=== PATIENT | female | born 1960 | race Caucasian/White ===

== ENCOUNTER 2017-03-23 06:45 | Emergency (ER) | payer OTHER ==
[2017-03-23] MEDS ORDERED: ONDANSETRON 4 MG/2 ML VIAL IVP ONE (07:17)
[2017-03-23] MEDS ORDERED: NS 1,000 ML IV ONE (07:17)
--- NOTE | 2017-03-23 07:22 | EDPHY ---
H & P Stated Complaint: vomiting since Wednesday Time Seen by Provider: 03/23/17 07:05 HPI/ROS: CHIEF COMPLAINT: Vomiting HISTORY OF PRESENT ILLNESS: This is a 56-year-old female with a history of rheumatoid arthritis for which she takes methotrexate every Wednesday. She took her dose of methotrexate last Wednesday, 2 days ago, and has had vomiting since. She has had vomiting in the past that she feels is related to her methotrexate, but her current vomiting is more frequent and more persistent than what she has experienced previously. She is decreasing her methotrexate dose and starting Humira. She denies fever. She has had some abdominal cramping but no localized abdominal pain. She denies diarrhea. She has tried her oral Zofran without relief. She has been unable to keep down any food or fluids. REVIEW OF SYSTEMS: A ten point review of systems was performed and is negative with the exception of the items mentioned in the HPI. - Personal History Current Tetanus/Diphtheria Vaccine: Yes Tetanus Vaccine Date: 2007 - Medical/Surgical History Hx Asthma: Yes Hx Chronic Respiratory Disease: No Hx Diabetes: Yes Hx Cardiac Disease: No Hx Renal Disease: No Hx Cirrhosis: No Hx Alcoholism: No Hx HIV/AIDS: No Hx Splenectomy or Spleen Trauma: No Other PMH: kidney stones, diabetes, allergies, RA/OA. ops: hyst, julien, bso, lisa, tonsillectomy, nephrostomy tube, lithotripsy UROSEPSIS/heart cath - Social History Smoking Status: Heavy smoker - Physical Exam Exam: General Appearance: Alert. Vital signs reviewed. Eyes: Pupils equal and round, no conjunctival injection, no discharge. Anicteric. ENT, Mouth: Mucous membranes are moist, no oropharyngeal erythema or edema. Neck: No lymphadenopathy, supple. Respiratory: Lungs are clear to auscultation; no wheezes, rales, or rhonchi. Cardiovascular: Regular rate and rhythm; no murmur, rub, or gallop. Gastrointestinal: Abdomen is soft and nontender, no masses or organomegaly, bowel sounds normal. Skin: Warm and dry, no rashes on exposed skin, normal color. Back: Nontender to palpation over the thoracolumbar spine. No CVAT. Extremities: No lower extremity edema, no calf tenderness or swelling. Neurological: Alert and oriented. Moving all four extremities easily and equally. Psychiatric: Normal affect. Constitutional: Initial Vital Signs Temperature (C) 36.7 C 03/23/17 06:57 Heart Rate 66 03/23/17 06:57 Respiratory Rate 20 03/23/17 06:57 Blood Pressure 133/77 H 03/23/17 06:57 O2 Sat (%) 97 03/23/17 06:57 O2 Delivery Mode Room Air Allergies/Adverse Reactions: moxifloxacin [Moxifloxacin] Allergy (Severe, Verified 03/23/17 07:00) Hives Penicillins Allergy (Severe, Verified 03/23/17 07:00) Respiratory Distress Fnlnmov-Lol-Fox Reductase Inhibitor Allergy (Severe, Verified 03/23/17 07:00) Muscle Cramping/Aching corn Allergy (Verified 03/23/17 07:00) Pork/Porcine Containing Products [pork] Allergy (Verified 03/23/17 07:00) Home Medications: Medication Instructions Recorded Cholestyramine Packet 03/23/17 Citalopram 03/23/17 Folic Acid 03/23/17 Humira 03/23/17 Lisinopril 03/23/17 Metformin HCl 03/23/17 Methotrexate 03/23/17 Ondansetron 03/23/17 Ondansetron Odt [Zofran Odt 4 mg 4 mg PO Q4 PRN #10 tab 03/23/17 (RX)] Oxycodone HCl 03/23/17 Pioglitazone HCl 03/23/17 Prednisone 03/23/17 traZODone 03/23/17 Medical Decision Making ED Course/Re-evaluation: 1 L normal saline IV and 4 mg IV Zofran ordered. She was re-evaluated at 9:05 a.m.. She is feeling significantly better and has had no vomiting. She was able to tolerate p. o. but developed some further nausea, for which she was given another dose of Zofran. She feels well enough to return home and will be discharged home with Zofran 0DT. Differential Diagnosis: I considered a differential diagnosis that includes but is not limited to gastritis, pancreatitis, medication side effect, and appendicitis. Her gallbladder has been removed. She does not have a tender or surgical abdomen. I am not concerned about the possibility of intra-abdominal infection at this point. - Data Points Medications Given: Discontinued Medications Sodium Chloride (Ns) 1,000 mls @ 0 mls/hr IV ONCE ONE; Wide Open PRN Reason: Protocol Stop: 03/23/17 07:18 Last Admin: 03/23/17 07:40 Dose: 1,000 mls Ondansetron HCl (Zofran) 4 mg IVP EDNOW ONE Stop: 03/23/17 07:18 Last Admin: 03/23/17 07:40 Dose: 4 mg Ondansetron HCl (Zofran Odt) 4 mg PO EDNOW ONE Stop: 03/23/17 10:05 Last Admin: 03/23/17 10:05 Dose: 4 mg Departure - Departure Disposition: Home, Routine, Self-Care Clinical Impression: Vomiting alone Qualifiers: Vomiting type: unspecified Vomiting Intractability: non-intractable Qualified Code(s): R11.11 - Vomiting without nausea Condition: Good Instructions: Acute Nausea and Vomiting (ED) Additional Instructions: Use the Zofran under your tongue every four hours if needed for nausea and vomiting. [place] diet today. Follow up with your concrete spreader and/or your primary care physician as needed. Referrals: Rosalba Gold MD [Primary Care Provider] - As per Instructions Stand Alone Forms: Work Excuse Prescriptions: Ondansetron Odt [Zofran Odt 4 mg (RX)] 4 mg PO Q4 PRN #10 tab PRN Reason: nausea
[2017-03-23] MEDS ORDERED: ONDANSETRON DISINTEGRATING 4 MG TAB ONE (10:02)
[2017-03-23] MEDS ORDERED: ONDANSETRON DISINTEGRATING 4 MG TAB PO ONE (10:04)
[2017-03-23 10:27] VITALS: BP 104/73; PULSE 66; RESP 16; TEMP 98.4; O2SAT 96
== END 2017-03-23 10:30 | disposition home or self-care (01) ==
LOC: CED 06:45
DX: R11.11 Vomiting without nausea (principal); E86.9 Volume depletion, unspecified; J45.909 Unspecified asthma, uncomplicated; E11.9 Type 2 diabetes mellitus without complications; F17.200 Nicotine dependence, unspecified, uncomplicated; Z79.84 Long term (current) use of oral hypoglycemic drugs
CPT/HCPCS: 96374; J2405

== ENCOUNTER 2017-03-24 03:07 | Emergency (ER) | payer OTHER ==
[2017-03-24] MEDS ORDERED: NS 1,000 ML IV ONE (03:22)
[2017-03-24] MEDS ORDERED: ONDANSETRON 4 MG/2 ML VIAL IVP ONE ×2 (03:23→04:08)
[2017-03-24 03:27] LABS: % IMMATURE GRANULYOCYTES 0.6 % (0.0-1.1); ABSOLUTE IMMATURE GRANULOCYTES 0.07 10^3/uL (0.00-0.10); ADD DIFF? NO; ADD MORPH? NO; ADD SCAN? NO; ATYPICAL LYMPHOCYTE FLAG 0 (0-99); FRAGMENT RBC FLAG 0 (0-99); HEMATOCRIT 33.1 % (38.0-47.0); HEMOGLOBIN 11.3 g/dL (12.6-16.3); LEFT SHIFT FLG 0 (0-99); LIPEMIA HEMOLYSIS FLAG 90 (0-99); MEAN CELL HEMOGLOBIN 30.4 pg (27.9-34.1); MEAN CELL HEMOGLOBIN CONCENTR. 34.1 g/dL (32.4-36.7); MEAN PLATELET VOLUME 10.4 fL (8.7-11.7); PLATELET CLUMPS FLAG 20 (0-99); PLATELET COUNT 337 10^3/uL (150-400); RED BLOOD CELL COUNT 3.72 10^6/uL (4.18-5.33); RED CELL DISTRIBUTION WIDTH 15.8 % (11.5-15.2)
[2017-03-24 03:37] LABS: COLOR YELLOW; LEUKOCYTE ESTERASE,URINE 1+ (NEGATIVE); NITRITE,URINE POSITIVE (NEGATIVE); PH,URINE 5.5 (5.0-7.5)
[2017-03-24 03:42] LABS: ALBUMIN 3.6 g/dL (3.5-5.0); BILIRUBIN,TOTAL 0.5 mg/dL (0.1-1.4); BILIRUBIN-CONJUGATED 0.3 mg/dL (0.0-0.5); BILIRUBIN-UNCONJUGATED 0.2 mg/dL (0.0-1.1); CALCIUM 9.3 mg/dL (8.5-10.4); CREATININE 1.1 mg/dL (0.6-1.0); POTASSIUM 4.3 mEq/L (3.5-5.2); TOTAL PROTEIN 6.1 g/dL (6.3-8.2)
[2017-03-24 03:50] LABS: BACTERIA 4+ /hpf (NONE SEEN); WBC,URINE 50-182 /hpf (0-3)
--- NOTE | 2017-03-24 04:03 | EDPHY ---
H & P Stated Complaint: N/V Time Seen by Provider: 03/24/17 03:40 HPI/ROS: This patient reports a 3 day history of vomiting. She explains that her nausea vomiting started on Wednesday morning and she notes gradual increased frequency of the vomiting. She was seen here yesterday on WednesdayMarch 23 and respond well to Zofran with resolution of her nausea and vomiting. However the vomiting recurred within hours when she returned home and she is also unable tolerate the supple nitroglycerin due to frequent emesis. She reports some epigastric pain that started yesterday apparently after her visit here describes a pressure sensation peak intensity 7/10. It does not radiate. She notes no exacerbating factors for that discomfort. She has never had this epigastric pain before. ROS: She reports no fevers. She does have a feeling of cold intolerance for that she reports she has had for quite some time often wearing blankets even during the day. HEENT: No URI symptoms. No sore throat. Pulmonary: No regular coughing no pleuritic pain or shortness of breath. Cardiac: No chest pain. No heart palpitations or lightheadedness. No lower extremity swelling. Hematologic: Patient reports easy bruising recently which is not typical for her. GI: No lower belly pain except for just before she vomits she gets some cramping. : No urinary symptoms Integumentary: No skin rash Complete ROS is otherwise negative. Source: Patient Exam Limitations: No limitations - Personal History Tetanus Vaccine Date: 2007 - Medical/Surgical History PMH: The patient reports a history of an OH but within normal follow-up cardiac catheterization 2 years ago or so. Urosepsis Rheumatoid arthritis Diabetes Past surgical history of cholecystectomy & TAHBSO Hx Asthma: Yes Hx Chronic Respiratory Disease: No Hx Diabetes: Yes Hx Cardiac Disease: No Hx Renal Disease: No Hx Cirrhosis: No Hx Alcoholism: No Hx HIV/AIDS: No Hx Splenectomy or Spleen Trauma: No Other PMH: kidney stones, diabetes, allergies, RA/OA. ops: hyst, julien, bso, lisa, tonsillectomy, nephrostomy tube, lithotripsy UROSEPSIS/heart cath - Family History Significant Family History: No pertinent family hx - Social History Smoking Status: Heavy smoker Alcohol Use: None Drug Use: None - Physical Exam Exam: General Appearance: Alert, no distress. Eyes: Pupils equal and round no pallor or injection. ENT, Mouth: Mucous membranes moist. Respiratory: There are no retractions, lungs are clear to auscultation. Cardiovascular: Regular rate and rhythm. Gastrointestinal: Abdomen is soft and nontender, no masses, bowel sounds normal. Neurological: GCS 15 with no focal neuro deficits. Skin: Warm and dry, no rashes. Musculoskeletal: Neck is supple nontender. Extremities are symmetrical, full range of motion. Psychiatric: Patient is oriented X 3, there is no agitation. DIFFERENTIAL DIAGNOSIS: After history and physical exam differential diagnosis was considered for viral illness, food intolerance, early bowel obstruction, mi , hepatitis, pancreatitis, gastritis, UTI Constitutional: Initial Vital Signs Temperature (C) 36.3 C 03/24/17 03:13 Heart Rate 68 03/24/17 03:13 Respiratory Rate 16 03/24/17 03:13 Blood Pressure 140/79 H 03/24/17 03:13 O2 Sat (%) 96 03/24/17 03:13 O2 Delivery Mode Room Air Allergies/Adverse Reactions: moxifloxacin [Moxifloxacin] Allergy (Severe, Verified 03/23/17 07:00) Hives Penicillins Allergy (Severe, Verified 03/23/17 07:00) Respiratory Distress Ugcsgkx-Kjg-Cyb Reductase Inhibitor Allergy (Severe, Verified 03/23/17 07:00) Muscle Cramping/Aching corn Allergy (Verified 03/23/17 07:00) Pork/Porcine Containing Products [pork] Allergy (Verified 03/23/17 07:00) Home Medications: Medication Instructions Recorded Cholestyramine Packet 03/23/17 Citalopram 03/23/17 Folic Acid 03/23/17 Humira 03/23/17 Lisinopril 03/23/17 Metformin HCl 03/23/17 Methotrexate 03/23/17 Ondansetron 03/23/17 Ondansetron Odt [Zofran Odt 4 mg 4 mg PO Q4 PRN #10 tab 03/23/17 (RX)] Oxycodone HCl 03/23/17 Pioglitazone HCl 03/23/17 Prednisone 03/23/17 traZODone 03/23/17 levOFLOXACIN [Levaquin] 500 mg PO DAILY #6 tablet 03/24/17 Medical Decision Making - Diagnostics EKG Interpretation: 12 lead EKG performed at 0401 reveals sinus a rhythm at 57 Intervals: Normal throughout [place]: Normal throughout ST segments: Notable for T-wave inversion in lead V1 and V2 this is a new change when compared to an EKG deviated December 11, 2014. That previous EKG her T -waves were upright in V1 IV to Overall assessment: Sinus arrhythmia with anterior T-wave abnormalities-cannot rule out ischemia or metabolic abnormalities ED Course/Re-evaluation: IV Zofran with partial relief of nausea but still had persistent nausea followed by repeat 4 mg IV Zofran dose 1 L normal saline bolus After reviewing lab results-urinalysis is consistent with UTI. Given her associated nausea and vomiting, inquired if she had had UTIs in the past or pyelonephritis without kidney pain and she remarked that she had never had any kidney pain even with significant UTIs in the past. Given her positive urinalysis, leukocytosis and vomiting a suspect that she has pyelonephritis. Patient has anaphylaxis type reaction bear description with respiratory distress to penicillin so will avoid cephalosporin for her. She has tolerated Levaquin without complications in the past. She has also tolerated Cipro. Given her ongoing nausea we will treat her with an IV dose of Levaquin Mrs. Potts's vomiting did not respond to the repeat IV Zofran dose. I then treated her with Reglan 5 mg and 50 mg of Benadryl IV still with persistent nausea and vomiting. Finally, her nausea resolved with a repeat Reglan dose-5 mg IV and 1 mg of Ativan IV. She then slept while receiving the IV Levaquin. At 6:30 a.m. she awakens with resolution of her nausea tolerates p.o. fluid. Discussion: Patient with an atypical presentation of apparent pyelonephritis with out UTI symptoms or flank pain but leukocytosis, pyuria, bacteria and vomiting. She does not meet criteria for sepsis. While her EKG showed a T-wave change anteriorly compared to prior EKGs, her troponin is negative and review of her previous history reveals a normal cardiac catheterization that followed false positive stress test. I do not think the patient is currently having cardiac ischemia. - Data Points Laboratory Results: Laboratory Results 03/24/17 03:19 03/24/17 03:19 03/24/17 03/24/17 03/24/17 03:26 03:19 03:19 WBC RBC Hgb Hct MCV MCH MCHC RDW Plt Count MPV Neut % (Auto) Lymph % (Auto) [place] % (Auto) Eos % (Auto) Baso % (Auto) Nucleat RBC Rel Count Absolute Neuts (auto) Absolute Lymphs (auto) Absolute Monos (auto) Absolute Eos (auto) Absolute Basos (auto) Absolute Nucleated RBC Immature Gran % Immature Gran # Sodium 138 mEq/L mEq/L (134-144) Potassium 4.3 mEq/L mEq/L (3.5-5.2) Chloride 106 mEq/L mEq/L (97-110) Carbon Dioxide 19 mEq/l L mEq/l (22-31) Anion Gap 13 mEq/L mEq/L (8-16) BUN 20 mg/dL mg/dL (7-23) Creatinine 1.1 mg/dL H mg/dL (0.6-1.0) Estimated GFR 51 Glucose 173 mg/dL H mg/dL (70-100) Calcium 9.3 mg/dL mg/dL (8.5-10.4) Total Bilirubin 0.5 mg/dL mg/dL (0.1-1.4) Conjugated Bilirubin 0.3 mg/dL mg/dL (0.0-0.5) Unconjugated Bilirubin 0.2 mg/dL mg/dL (0.0-1.1) AST 17 IU/L IU/L (14-46) ALT 33 IU/L IU/L (9-52) Alkaline Phosphatase 88 IU/L IU/L (38-126) Troponin I < 0.012 ng/mL ng/mL (0-0.034) Total Protein 6.1 g/dL L g/dL (6.3-8.2) Albumin 3.6 g/dL g/dL (3.5-5.0) Lipase 118.0 IU/L IU/L (23-300) Urine Color YELLOW Urine Appearance CLEAR Urine pH 5.5 (5.0-7.5) Ur Specific [place] 1.020 (1.002-1.030) Urine Protein NEGATIVE (NEGATIVE) Urine Ketones TRACE H (NEGATIVE) Urine Blood TRACE H (NEGATIVE) Urine Nitrate POSITIVE H (NEGATIVE) Urine Bilirubin NEGATIVE (NEGATIVE) Urine Urobilinogen 0.2 EU EU (0.2-1.0) Ur Leukocyte Esterase 1+ H (NEGATIVE) Urine RBC 3-5 /hpf H /hpf (0-3) Urine WBC 50-182 /hpf H /hpf (0-3) Ur Epithelial Cells 3+ /lpf H /lpf (NONE-1+) Urine Bacteria 4+ /hpf H /hpf (NONE SEEN) Urine Glucose NEGATIVE (NEGATIVE) 03/24/17 03:19 WBC 12.51 10^3/uL H 10^3/uL (3.80-9.50) RBC 3.72 10^6/uL L 10^6/uL (4.18-5.33) Hgb 11.3 g/dL L g/dL (12.6-16.3) Hct 33.1 % L % (38.0-47.0) MCV 89.0 fL fL (81.5-99.8) MCH 30.4 pg pg (27.9-34.1) MCHC 34.1 g/dL g/dL (32.4-36.7) RDW 15.8 % H % (11.5-15.2) Plt Count 337 10^3/uL 10^3/uL (150-400) MPV 10.4 fL fL (8.7-11.7) Neut % (Auto) 80.4 % H % (39.3-74.2) Lymph % (Auto) 17.3 % % (15.0-45.0) [place] % (Auto) 1.4 % L % (4.5-13.0) Eos % (Auto) 0.1 % L % (0.6-7.6) Baso % (Auto) 0.2 % L % (0.3-1.7) Nucleat RBC Rel Count 0.0 % % (0.0-0.2) Absolute Neuts (auto) 10.05 10^3/uL H 10^3/uL (1.70-6.50) Absolute Lymphs (auto) 2.17 10^3/uL 10^3/uL (1.00-3.00) Absolute Monos (auto) 0.18 10^3/uL L 10^3/uL (0.30-0.80) Absolute Eos (auto) 0.01 10^3/uL L 10^3/uL (0.03-0.40) Absolute Basos (auto) 0.03 10^3/uL 10^3/uL (0.02-0.10) Absolute Nucleated RBC 0.00 10^3/uL 10^3/uL (0-0.01) Immature Gran % 0.6 % % (0.0-1.1) Immature Gran # 0.07 10^3/uL 10^3/uL (0.00-0.10) Sodium Potassium Chloride Carbon Dioxide Anion Gap BUN Creatinine Estimated GFR Glucose Calcium Total Bilirubin Conjugated Bilirubin Unconjugated Bilirubin AST ALT Alkaline Phosphatase Troponin I Total Protein Albumin Lipase Urine Color Urine Appearance Urine pH Ur Specific [place] Urine Protein Urine Ketones Urine Blood Urine Nitrate Urine Bilirubin Urine Urobilinogen Ur Leukocyte Esterase Urine RBC Urine WBC Ur Epithelial Cells Urine Bacteria Urine Glucose Medications Given: Discontinued Medications Diphenhydramine HCl (Benadryl Injection) 50 mg IVP EDNOW ONE Stop: 03/24/17 04:21 Last Admin: 03/24/17 04:27 Dose: 50 mg Sodium Chloride (Ns) 1,000 mls @ 0 mls/hr IV ONCE ONE; Wide Open PRN Reason: Protocol Stop: 03/24/17 03:23 Last Admin: 03/24/17 03:25 Dose: 1,000 mls Levofloxacin/Dextrose (Levaquin 750 Mg (Premix)) 150 mls @ 100 mls/hr IV EDNOW ONE PRN Reason: Protocol Stop: 03/24/17 05:37 Last Admin: 03/24/17 04:28 Dose: 150 mls Lorazepam (Ativan Injection) 1 mg IVP EDNOW ONE Stop: 03/24/17 04:43 Last Admin: 03/24/17 04:46 Dose: 1 mg Metoclopramide HCl (Reglan Injection) 5 mg IVP EDNOW ONE Stop: 03/24/17 04:19 Last Admin: 03/24/17 04:27 Dose: 5 mg Metoclopramide HCl (Reglan Injection) 5 mg IVP EDNOW ONE Stop: 03/24/17 04:57 Last Admin: 03/24/17 05:04 Dose: 5 mg Ondansetron HCl (Zofran) 4 mg IVP EDNOW ONE Stop: 03/24/17 03:24 Last Admin: 03/24/17 03:28 Dose: 4 mg Ondansetron HCl (Zofran) 4 mg IVP EDNOW ONE Stop: 03/24/17 04:09 Last Admin: 03/24/17 04:12 Dose: 4 mg Departure - Departure Disposition: Home, Routine, Self-Care Clinical Impression: Urinary tract infection, Acute pyelonephritis Vomiting Qualifiers: Vomiting type: unspecified Vomiting Intractability: non-intractable Nausea presence: with nausea Qualified Code(s): R11.2 - Nausea with vomiting, unspecified Clinical Impression: (Ruled Out): Urinary tract infection Condition: Good Instructions: Urinary Tract Infection in Women (ED), Acute Nausea and Vomiting (ED) Additional Instructions: Diagnoses: 1. Vomiting 2. Urinary tract infection Plan: Home to rest. You received your antibiotic dose for today. Take the oral Levaquin starting tomorrow daily for the next 6 days. Zofran for nausea or vomiting if needed Light diet to feel improved Return for any significant worsening despite treatment plan Follow up with primary care physician if you have ongoing symptoms despite the treatment plan. Prescriptions: levOFLOXACIN [Levaquin] 500 mg PO DAILY #6 tablet
[2017-03-24] MEDS ORDERED: METOCLOPRAMIDE 10 MG/2 ML VIAL IVP ONE ×2 (04:18→04:56)
[2017-03-24] MEDS ORDERED: METOCLOPRAMIDE 10 MG/2 ML VIAL ONE (04:19)
[2017-03-24] MEDS ORDERED: LORazepam 2 MG/ML INJ IVP ONE (04:42)
--- NOTE | 2017-03-24 04:45 | CPEKG ---
Heart Rate: 57 RR Interval: 1053 P-R Interval: 136 QRSD Interval: 94 QT Interval: 448 QTC Interval: 437 P Fabens: 36 QRS [place]: 54 T Wave [place]: 58 EKG Severity - OTHERWISE NORMAL ECG - EKG Impression: SINUS ARRHYTHMIA, RATE 49-65 Electronically Signed By: Scotty Alvarado 24-Mar-2017 06:46:51
[2017-03-24 05:05] VITALS: RESP 18
[2017-03-24 06:11] VITALS: O2SAT 95
[2017-03-24 06:37] VITALS: BP 150/89; PULSE 76; TEMP 99
== END 2017-03-24 06:52 | disposition home or self-care (01) ==
LOC: CED 03:07
DX: N10 Acute pyelonephritis (principal); N39.0 Urinary tract infection, site not specified; B96.20 Unspecified Escherichia coli [E. coli] as the cause of diseases classified elsewhere; E11.9 Type 2 diabetes mellitus without complications; F17.200 Nicotine dependence, unspecified, uncomplicated; J45.909 Unspecified asthma, uncomplicated; E86.9 Volume depletion, unspecified; Z79.84 Long term (current) use of oral hypoglycemic drugs
CPT/HCPCS: 80048-PO; 80076-PO; 81003-PO; 81015-PO; 83690-PO; 84484-PO; 85025-PO; 96365; 96366; J1200; J1956; J2060; J2405; J2765